=== PATIENT | male | born 1945 | race Caucasian/White ===

== ENCOUNTER 2019-12-09 06:21 | Inpatient (IN) ==
[2019-12-03 11:31] LABS: Basophils # 0.1 10*3/uL (0.0-0.2); Basophils % 0.9 % (0.0-0.8); Eosinophils # 0.4 10*3/uL (0.0-0.87); Eosinophils % 4.9 % (0.00-10.9); Hematocrit 39.8 VOL% (42.0-52.0); Hemoglobin 12.8 GM/DL (14.0-18.0); Immature Granulocytes % 0.3 %; Immature Granulocytes Absolute 0.02 #; Lymphocytes # 1.7 10*3/uL (1.4-4.0); Lymphocytes % 22.7 % (21.2-54.2); Mean Corpuscular HGB Conc 32.2 GM/DL (32-36); Mean Corpuscular Volume 89.6 FL (87-102); Mean Platelet Volume 11.3 FL (9.6-12.0); Monocytes % 9.5 % (1.7-12.7); Neutrophils % 61.7 % (38.7-73.9); Platelet Count 248 T/CUMM (130-400); Red Blood Count 4.44 MC/CUMM (3.8-5.5); Red Cell Distribution Width 15.4 % (9.3-17.3); White Blood Count 7.6 T/CUMM (4-12)
[2019-12-03 11:48] LABS: PT Patient Result 10.3 SECS (9.8-11.9); Partial Thromboplastin Time 25.4 SECS (23.9-33.8)
[2019-12-03 11:57] LABS: Bilirubin,Total 0.4 MG/DL (0.2-1.0); Calcium 9.6 MG/DL (8.5-10.1); Osmolality,Calculated 277.8 MOS/KG (273-304); Total Protein 8.5 G/DL (6.4-8.3)
[2019-12-09] MEDS ORDERED: VANCOMYCIN INJ 500 MG in SODIUM CHLORIDE 0.9% 100 ML IV ONE (06:30)
[2019-12-09] MEDS ORDERED: LACTATED RINGERS 1,000 ML IV SCH (08:00)
[2019-12-09] MEDS ORDERED: LIDOCAINE 1% 20 ML VIAL ONE (08:04)
[2019-12-09] MEDS ORDERED: HEPARIN 5,000 UNIT/1 ML VIAL ONE (08:04)
[2019-12-09] MEDS ORDERED: VANCOMYCIN 1,000 MG VIAL ONE (08:08)
[2019-12-09] MEDS ORDERED: SUGAMMADEX 200 MG/2 ML VIAL IV ONE (09:56)
[2019-12-09] MEDS ORDERED: DEXTROSE 50% 25 GM/50 ML VIAL IV PRN (10:20)
[2019-12-09] MEDS ORDERED: PROMETHAZINE 25 MG/1 ML VIAL IM PRN (10:20)
[2019-12-09] MEDS ORDERED: ONDANSETRON 4 MG/2 ML VIAL IV PRN (10:20)
[2019-12-09] MEDS ORDERED: GLUCAGON 1 MG VIAL IM PRN (10:20)
[2019-12-09] MEDS ORDERED: oxyCODONE/ACETAMINOPHEN 5-325 MG TABLET PO PRN ×2 (10:20)
[2019-12-09] MEDS ORDERED: NALOXONE 0.4 MG/ML VIAL IV PRN (10:20)
[2019-12-09] MEDS ORDERED: HYDROmorphone 2 MG/1 ML VIAL IV PRN ×2 (10:20)
[2019-12-09] MEDS ORDERED: ALBUTEROL 2.5 MG/3 ML NEB RESP TX PRN (10:22)
[2019-12-09] MEDS ORDERED: NITROPRUSSIDE 100 MG in DEXTROSE 5% 250 ML IV SCH (10:30)
[2019-12-09] MEDS ORDERED: PHENYLEPHRINE DRIP 40 MG/250 ML PREMIX IV SCH (10:30)
[2019-12-09] MEDS ORDERED: SEVOFLURANE 1 UNIT/15 MINUTE INH ONE (10:55)
[2019-12-09] MEDS ORDERED: propofoL 200 MG/20 ML VIAL IV ONE (10:55)
[2019-12-09] MEDS ORDERED: LIDOCAINE 2% 5 ML VIAL ONE (10:55)
[2019-12-09] MEDS ORDERED: fentaNYL 100 MCG/2 ML VIAL ONE (10:56)
[2019-12-09] MEDS ORDERED: ROCURONIUM 100 MG/10 ML VIAL IV ONE (10:56)
[2019-12-09] MEDS ORDERED: SODIUM CHLORIDE 0.9% 1,000 ML IV ONE (10:56)
[2019-12-09] MEDS ORDERED: ONDANSETRON 4 MG/2 ML VIAL ONE ×2 (10:56→11:40)
[2019-12-09] MEDS ORDERED: ETOMIDATE 40 MG/20 ML VIAL IV ONE (10:56)
[2019-12-09] MEDS ORDERED: MIDAZOLAM 2 MG/2 ML VIAL ONE (10:56)
[2019-12-09] MEDS ORDERED: ePHEDrine 50 MG/ML VIAL ONE (10:56)
[2019-12-09] MEDS ORDERED: MEPERIDINE 25 MG/1 ML VIAL ONE (11:40)
[2019-12-09] MEDS ORDERED: ONDANSETRON 4 MG/2 ML VIAL IV ONE (11:45)
[2019-12-09] MEDS ORDERED: MEPERIDINE 25 MG/1 ML VIAL IV ONE (11:45)
[2019-12-09] MEDS: INSULIN REGULAR 100 UNIT/ML SUBCUT SCH ×3 (15:28→20:48)
[2019-12-09] MEDS: LACTATED RINGERS 1,000 ML IV SCH (15:49)
[2019-12-09 16:15] VITALS: BP 108/36
[2019-12-09] MEDS ORDERED: PRAVASTATIN 40 MG TABLET PO SCH (21:00)
[2019-12-09] MEDS ORDERED: hydrOXYzine HCL 25 MG TABLET PO SCH (21:00)
[2019-12-09] MEDS: cilostazoL 50 MG TABLET PO SCH (21:07)
[2019-12-09] MEDS: BUDESONIDE/FORMOTEROL 160-4.5 INHALER 6 GM INH SCH (21:07)
[2019-12-09] MEDS: LOSARTAN 25 MG TABLET PO SCH (21:07)
[2019-12-09] MEDS: GLIMEPIRIDE 4 MG TABLET PO SCH (21:07)
[2019-12-10] MEDS: LACTATED RINGERS 1,000 ML IV SCH (01:08)
[2019-12-10] MEDS ORDERED: LEVOTHYROXINE 75 MCG TABLET PO SCH (06:30)
[2019-12-10] MEDS: INSULIN REGULAR 100 UNIT/ML SUBCUT SCH ×2 (07:53→11:59)
[2019-12-10] MEDS: cilostazoL 50 MG TABLET PO SCH (08:27)
[2019-12-10] MEDS: BUDESONIDE/FORMOTEROL 160-4.5 INHALER 6 GM INH SCH (08:27)
[2019-12-10] MEDS: GLIMEPIRIDE 4 MG TABLET PO SCH (08:28)
[2019-12-10] MEDS: LOSARTAN 25 MG TABLET PO SCH (08:28)
[2019-12-10] MEDS ORDERED: rOPINIRole 1 MG TABLET PO SCH (09:00)
[2019-12-10] MEDS ORDERED: MONTELUKAST 10 MG TABLET PO SCH (09:00)
[2019-12-10] MEDS ORDERED: SERTRALINE 50 MG TABLET PO SCH (09:00)
[2019-12-10] MEDS ORDERED: FUROSEMIDE 20 MG TABLET PO SCH (09:00)
[2019-12-10] MEDS ORDERED: SIMVASTATIN 20 MG TABLET PO SCH (09:00)
[2019-12-10] MEDS ORDERED: GLUCOSAMINE 500 MG TABLET PO SCH (09:00)
[2019-12-10] MEDS ORDERED: LORATADINE 10 MG TABLET PO SCH (09:00)
[2019-12-10] MEDS ORDERED: ASPIRIN EC 81 MG TABLET PO SCH ×2 (09:00)
[2019-12-10] MEDS ORDERED: CLOPIDOGREL 75 MG TABLET PO SCH ×2 (09:00)
[2019-12-10] MEDS ORDERED: metFORMIN 500 MG TABLET PO SCH (21:00)
== END 2019-12-10 14:43 | disposition home or self-care (01) | DRG 38 ==
LOC: N.SDSINP 06:21 → N.CVR 13:41
PROVIDERS: ADMIT Surgery; ATTEND Surgery

== ENCOUNTER 2020-03-29 12:10 | Inpatient (IN) ==
[2020-03-29] MEDS ORDERED: ACETAMINOPHEN 325 MG TABLET PO PRN (13:28)
[2020-03-29] MEDS ORDERED: GLUCAGON 1 MG VIAL IM PRN (13:28)
[2020-03-29] MEDS ORDERED: ONDANSETRON 4 MG/2 ML VIAL IV PRN (13:28)
[2020-03-29] MEDS ORDERED: hydrALAZINE 20 MG/1 ML VIAL IV PRN (13:28)
[2020-03-29] MEDS ORDERED: DEXTROSE 50% 25 GM/50 ML VIAL IV PRN (13:28)
[2020-03-29 13:33] LABS: Basophils # 0.1 10*3/uL (0.0-0.2); Basophils % 0.4 % (0.0-0.8); Eosinophils # 0.1 10*3/uL (0.0-0.87); Eosinophils % 0.5 % (0.00-10.9); Hematocrit 29.9 VOL% (42.0-52.0); Immature Granulocytes % 0.6 %; Immature Granulocytes Absolute 0.07 #; Lymphocytes # 0.9 10*3/uL (1.4-4.0); Lymphocytes % 8.2 % (21.2-54.2); Mean Corpuscular HGB Conc 30.1 GM/DL (32-36); Mean Corpuscular Volume 79.1 FL (87-102); Mean Platelet Volume 11.2 FL (9.6-12.0); Monocytes % 10.1 % (1.7-12.7); Neutrophils % 80.2 % (38.7-73.9); Platelet Count 198 T/CUMM (130-400); Red Blood Count 3.78 MC/CUMM (3.8-5.5); Red Cell Distribution Width 18.9 % (9.3-17.3); White Blood Count 11.3 T/CUMM (4-12)
[2020-03-29 14:08] LABS: Albumin 3.1 G/DL (3.4-5.0); Bilirubin,Total 0.8 MG/DL (0.2-1.0); Calcium 8.7 MG/DL (8.5-10.1); Ferritin 33.8 ng/ml (26-388); Osmolality,Calculated 284.7 MOS/KG (273-304); Total Protein 7.6 G/DL (6.4-8.3)
[2020-03-29 14:24] LABS: Thyroid Stimulating Hormone 6.47 uIU/ml (0.358-3.74)
[2020-03-29] MEDS ORDERED: ALBUTEROL 2.5 MG/3 ML NEB RESP TX PRN (14:40)
[2020-03-29 16:42] LABS: ABG HCO3 32.7 MMOL/L (20-26); ABG Oxygen Saturation 95.4 % (95-100); ABG PCO2 56.3 MM HG (35-48); ABG PH 7.404 (7.35-7.45); ABG PO2 75.6 MM HG (80-95); ABG TCO2 32.7 MMOL/L (23-27)
[2020-03-29] MEDS: FUROSEMIDE 40 MG/4 ML VIAL IV SCH (17:37)
[2020-03-29] MEDS: methylPREDNISolone SOD SUC 40 MG/1 ML VIAL IV SCH (17:41)
[2020-03-29] MEDS: INSULIN LISPRO 100 UNIT/ML SUBCUT SCH ×2 (18:34→21:45)
[2020-03-29] MEDS: ALBUTEROL/IPRATROPIUM 3 ML NEB RESP TX SCH (19:25)
[2020-03-29] MEDS ORDERED: ENOXAPARIN 40 MG/0.4 ML SYRINGE SUBCUT SCH (21:00)
[2020-03-29] MEDS: BUDESONIDE/FORMOTEROL 160-4.5 INHALER 6 GM INH SCH (21:45)
[2020-03-29] MEDS: APIXABAN 5 MG TABLET PO SCH (21:45)
[2020-03-29] MEDS: hydrOXYzine HCL 25 MG TABLET PO SCH (21:45)
[2020-03-29] MEDS: FAMOTIDINE 20 MG TABLET PO SCH (21:45)
[2020-03-29] MEDS: MAGNESIUM CHLORIDE 64 MG TABLET PO SCH (21:45)
[2020-03-30] MEDS: ALBUTEROL/IPRATROPIUM 3 ML NEB RESP TX SCH ×4 (02:49→19:15)
[2020-03-30] MEDS: methylPREDNISolone SOD SUC 40 MG/1 ML VIAL IV SCH ×2 (04:39→15:24)
[2020-03-30 05:58] LABS: Basophils % 0.3 % (0.0-0.8); Hematocrit 30.1 VOL% (42.0-52.0); Immature Granulocytes % 0.8 %; Immature Granulocytes Absolute 0.06 #; Lymphocytes # 0.4 10*3/uL (1.4-4.0); Lymphocytes % 5.3 % (21.2-54.2); Mean Corpuscular HGB Conc 29.9 GM/DL (32-36); Mean Corpuscular Volume 80.3 FL (87-102); Mean Platelet Volume 12.1 FL (9.6-12.0); Monocytes % 4.7 % (1.7-12.7); Neutrophils % 88.9 % (38.7-73.9); Platelet Count 202 T/CUMM (130-400); Red Blood Count 3.75 MC/CUMM (3.8-5.5); White Blood Count 7.7 T/CUMM (4-12)
[2020-03-30] MEDS: LEVOTHYROXINE 75 MCG TABLET PO SCH (06:27)
[2020-03-30 06:38] LABS: Albumin 2.8 G/DL (3.4-5.0); Bilirubin,Total 1.1 MG/DL (0.2-1.0); Calcium 8.9 MG/DL (8.5-10.1); Osmolality,Calculated 291.1 MOS/KG (273-304); Total Protein 7.4 G/DL (6.4-8.3)
[2020-03-30] MEDS: FUROSEMIDE 40 MG/4 ML VIAL IV SCH ×2 (07:41→15:25)
[2020-03-30] MEDS: INSULIN LISPRO 100 UNIT/ML SUBCUT SCH ×5 (07:57→20:36)
[2020-03-30 08:09] LABS: ABG Base Excess 8.1 MMOL/L (-2.5-2.5); ABG HCO3 33.5 MMOL/L (20-26); ABG Oxygen Saturation 93.6 % (95-100); ABG PCO2 51.7 MM HG (35-48); ABG PO2 72.6 MM HG (80-95); ABG TCO2 35.1 MMOL/L (23-27)
[2020-03-30] MEDS: LEVOFLOXACIN INJ 500 MG in PREMIX 1 EACH IV SCH (08:31)
[2020-03-30] MEDS: SIMVASTATIN 20 MG TABLET PO SCH (08:32)
[2020-03-30] MEDS: MAGNESIUM CHLORIDE 64 MG TABLET PO SCH ×2 (08:32→20:36)
[2020-03-30] MEDS: APIXABAN 5 MG TABLET PO SCH ×2 (08:32→20:36)
[2020-03-30] MEDS: MONTELUKAST 10 MG TABLET PO SCH (08:32)
[2020-03-30] MEDS: LORATADINE 10 MG TABLET PO SCH (08:32)
[2020-03-30] MEDS: POTASSIUM GLUCONATE 500 MG TABLET PO SCH (08:32)
[2020-03-30] MEDS: AMIODARONE 200 MG TABLET PO SCH (08:32)
[2020-03-30] MEDS: BUDESONIDE/FORMOTEROL 160-4.5 INHALER 6 GM INH SCH ×2 (11:51→20:37)
[2020-03-30] MEDS ORDERED: NITROGLYCERIN SL 0.4 MG TABLET SL PRN (13:45)
[2020-03-30] MEDS: ASPIRIN EC 81 MG TABLET PO SCH (15:24)
[2020-03-30] MEDS: hydrOXYzine HCL 25 MG TABLET PO SCH (20:36)
[2020-03-30] MEDS: carvediloL 3.125 MG TABLET PO SCH (20:36)
[2020-03-30] MEDS: FAMOTIDINE 20 MG TABLET PO SCH (20:36)
[2020-03-30] MEDS ORDERED: rOPINIRole 1 MG TABLET PO SCH (21:00)
[2020-03-31] MEDS: ALBUTEROL/IPRATROPIUM 3 ML NEB RESP TX SCH ×3 (02:15→12:21)
[2020-03-31] MEDS: methylPREDNISolone SOD SUC 40 MG/1 ML VIAL IV SCH (03:20)
[2020-03-31 04:46] LABS: Basophils % 0.1 % (0.0-0.8); Hematocrit 28.8 VOL% (42.0-52.0); Hemoglobin 8.6 GM/DL (14.0-18.0); Immature Granulocytes % 0.6 %; Immature Granulocytes Absolute 0.05 #; Lymphocytes # 0.6 10*3/uL (1.4-4.0); Lymphocytes % 6.9 % (21.2-54.2); Mean Corpuscular HGB Conc 29.9 GM/DL (32-36); Mean Corpuscular Volume 78.7 FL (87-102); Mean Platelet Volume 11.3 FL (9.6-12.0); Monocytes % 5.8 % (1.7-12.7); Neutrophils % 86.6 % (38.7-73.9); Platelet Count 212 T/CUMM (130-400); Red Blood Count 3.66 MC/CUMM (3.8-5.5); Red Cell Distribution Width 19.7 % (9.3-17.3)
[2020-03-31 05:26] LABS: Risk Ratio 5.12; VLDL CHOLESTEROL 33.8 MG/DL
[2020-03-31 05:27] LABS: Calcium 9.1 MG/DL (8.5-10.1); Osmolality,Calculated 295.5 MOS/KG (273-304)
[2020-03-31] MEDS: LEVOTHYROXINE 75 MCG TABLET PO SCH (05:36)
[2020-03-31] MEDS ORDERED: APIXABAN 2.5 MG TABLET PO SCH (09:00)
[2020-03-31] MEDS ORDERED: MULTIVITAMIN (CENTRUM) TABLET PO SCH (09:00)
[2020-03-31] MEDS: ASPIRIN EC 81 MG TABLET PO SCH (10:10)
[2020-03-31] MEDS: carvediloL 3.125 MG TABLET PO SCH (10:11)
[2020-03-31] MEDS: MAGNESIUM CHLORIDE 64 MG TABLET PO SCH (10:11)
[2020-03-31] MEDS: MONTELUKAST 10 MG TABLET PO SCH (10:11)
[2020-03-31] MEDS: POTASSIUM GLUCONATE 500 MG TABLET PO SCH (10:11)
[2020-03-31] MEDS: SIMVASTATIN 20 MG TABLET PO SCH (10:11)
[2020-03-31] MEDS: AMIODARONE 200 MG TABLET PO SCH (10:12)
[2020-03-31] MEDS: LORATADINE 10 MG TABLET PO SCH (10:12)
[2020-03-31] MEDS: LEVOFLOXACIN INJ 500 MG in PREMIX 1 EACH IV SCH (10:12)
[2020-03-31] MEDS: BUDESONIDE/FORMOTEROL 160-4.5 INHALER 6 GM INH SCH (10:13)
[2020-03-31] MEDS: FUROSEMIDE 40 MG/4 ML VIAL IV SCH (10:13)
[2020-03-31] MEDS ORDERED: INSULIN REGULAR 100 UNIT/ML IV ONE (11:36)
[2020-03-31] MEDS: INSULIN LISPRO 100 UNIT/ML SUBCUT SCH ×3 (11:38→11:43)
[2020-03-31 12:36] VITALS: BP 132/82
[2020-03-31] MEDS ORDERED: INSULIN LISPRO 100 UNIT/ML SUBCUT ONE (14:33)
== END 2020-03-31 15:49 | disposition home health service (06) | DRG 291 ==
LOC: EDUNIT# → EDBD → N.ED 12:10 → N.EDINP 13:26 → SUATTDRO 13:26 → N.EDINP 15:05 → N.TELEN 15:24
PROVIDERS: ADMIT Internal Medicine; ATTEND Internal Medicine

== ENCOUNTER 2021-08-21 12:44 | Inpatient (IN) ==
[2021-08-21] MEDS ORDERED: ONDANSETRON 4 MG/2 ML VIAL ONE (15:17)
[2021-08-21] MEDS ORDERED: ONDANSETRON 4 MG/2 ML VIAL IV STA (15:21)
[2021-08-21 15:41] LABS: Basophils % 0.7 % (0.0-0.8); Eosinophils # 0.1 10*3/uL (0.0-0.87); Eosinophils % 2.4 % (0.00-10.9); Hematocrit 32.4 VOL% (42.0-52.0); Hemoglobin 10.7 GM/DL (14.0-18.0); Immature Granulocytes % 0.5 %; Immature Granulocytes Absolute 0.03 #; Lymphocytes # 1.1 10*3/uL (1.4-4.0); Lymphocytes % 18.9 % (21.2-54.2); Mean Corpuscular Volume 98.2 FL (87-102); Mean Platelet Volume 11.2 FL (9.6-12.0); Monocytes # 0.9 10*3/uL (0.11-0.8); Neutrophils % 62.5 % (38.7-73.9); Platelet Count 329 T/CUMM (130-400); Red Cell Distribution Width 15.1 % (9.3-17.3); White Blood Count 5.9 T/CUMM (4-12)
[2021-08-21 15:51] LABS: PT Patient Result 10.6 SECS (10.5-12.0); Partial Thromboplastin Time 30.8 SECS (23.8-32.1)
[2021-08-21 16:01] LABS: Albumin 3.1 G/DL (3.4-5.0); Bilirubin,Total 0.5 MG/DL (0.20-1.00); Calcium 9.5 MG/DL (8.5-10.1); Osmolality,Calculated 280.4 MOS/KG (273-304); Potassium 3.1 MMOL/L (3.5-5.1)
[2021-08-21 16:06] LABS: Hyaline Casts,Urine 1 /LPF (0-3); Mucus,Urine Occasional /LPF (Occasional); Squamous Epithelial Cell,Urine Occasional /HPF (0-10)
[2021-08-21 16:07] LABS: Urine Appearance Clear (Clear); Urine Color Yellow (Yellow)
[2021-08-21 16:08] LABS: Bilirubin,Urine Negative (Negative); Blood, Urine Trace mg/dL (Negative); Glucose,Urine (UA) Negative (Negative); Ketones,Urine Negative (Negative); Nitrite,Urine Negative (Negative); Protein,Urine Negative (Negative); Urine Urobilinogen 0.2 eU/dL (<2.0); Urine pH 5.5 (4.5-8.0)
[2021-08-21] MEDS ORDERED: ONDANSETRON 4 MG/2 ML VIAL IV PRN (16:40)
[2021-08-21] MEDS ORDERED: MORPHINE 2 MG/1 ML SYRINGE IV STA (16:41)
[2021-08-21] MEDS ORDERED: metOLazone 5 MG TABLET PO PRN (16:46)
[2021-08-21] MEDS ORDERED: GLUCAGON 1 MG VIAL IM PRN (16:49)
[2021-08-21] MEDS ORDERED: DEXTROSE 10% 250 ML BAG IV PRN (17:09)
[2021-08-21] MEDS: SODIUM CHLORIDE 0.9% 1,000 ML IV SCH (17:56)
[2021-08-21] MEDS: ENOXAPARIN 30 MG/0.3 ML SYRINGE SUBCUT SCH (17:57)
[2021-08-21] MEDS: ALBUTEROL/IPRATROPIUM 3 ML NEB RESP TX SCH (19:20)
[2021-08-21] MEDS: gemfibroziL 600 MG TABLET PO SCH (21:39)
[2021-08-21] MEDS: hydrOXYzine HCL 25 MG TABLET PO SCH (21:39)
[2021-08-21] MEDS: carvediloL 3.125 MG TABLET PO SCH (21:40)
[2021-08-21] MEDS: MONTELUKAST 10 MG TABLET PO SCH (21:40)
[2021-08-21] MEDS: rOPINIRole 1 MG TABLET PO SCH (21:40)
[2021-08-21] MEDS: SERTRALINE 50 MG TABLET PO SCH (21:40)
[2021-08-21] MEDS: INSULIN REGULAR 100 UNIT/ML SUBCUT SCH (21:50)
[2021-08-22] MEDS: SODIUM CHLORIDE 0.9% 1,000 ML IV SCH ×3 (02:59→18:31)
[2021-08-22] MEDS: ALBUTEROL/IPRATROPIUM 3 ML NEB RESP TX SCH ×4 (03:40→18:55)
[2021-08-22] MEDS: LEVOTHYROXINE 88 MCG TABLET PO SCH (05:56)
[2021-08-22 07:19] LABS: Basophils % 0.9 % (0.0-0.8); Eosinophils # 0.1 10*3/uL (0.0-0.87); Eosinophils % 2.6 % (0.00-10.9); Hemoglobin 10.1 GM/DL (14.0-18.0); Immature Granulocytes % 0.4 %; Immature Granulocytes Absolute 0.02 #; Lymphocytes # 0.9 10*3/uL (1.4-4.0); Lymphocytes % 18.8 % (21.2-54.2); Mean Corpuscular HGB Conc 33.7 GM/DL (32-36); Mean Corpuscular Volume 97.4 FL (87-102); Mean Platelet Volume 11.4 FL (9.6-12.0); Monocytes # 0.7 10*3/uL (0.11-0.8); Monocytes % 15.1 % (1.7-12.7); Neutrophils % 62.2 % (38.7-73.9); Platelet Count 305 T/CUMM (130-400); Red Blood Count 3.08 MC/CUMM (3.8-5.5); Red Cell Distribution Width 14.9 % (9.3-17.3); White Blood Count 4.6 T/CUMM (4-12)
[2021-08-22 07:52] LABS: Albumin 2.9 G/DL (3.4-5.0); Bilirubin,Total 0.4 MG/DL (0.20-1.00); Osmolality,Calculated 288.5 MOS/KG (273-304); Total Protein 7.2 G/DL (6.4-8.2)
[2021-08-22] MEDS: FUROSEMIDE 40 MG TABLET PO SCH ×2 (09:22→15:40)
[2021-08-22] MEDS: carvediloL 3.125 MG TABLET PO SCH ×2 (09:22→18:32)
[2021-08-22] MEDS: ASPIRIN EC 81 MG TABLET PO SCH (09:22)
[2021-08-22] MEDS: NON-FORMULARY MEDICATION (Fluticasone-Umeclidin-Vilanter [Trelegy Ellipta] 100-62.5-25 mcg INH SCH (09:23)
[2021-08-22] MEDS: AMIODARONE 200 MG TABLET PO SCH (09:23)
[2021-08-22] MEDS: MAGNESIUM CHLORIDE 64 MG TABLET PO SCH (09:23)
[2021-08-22] MEDS: PANTOPRAZOLE 40 MG TABLET PO SCH (09:23)
[2021-08-22] MEDS: EZETIMIBE 10 MG TABLET PO SCH (09:23)
[2021-08-22] MEDS: TAMSULOSIN 0.4 MG CAPSULE PO SCH (09:23)
[2021-08-22] MEDS: LORATADINE 10 MG TABLET PO SCH (09:23)
[2021-08-22] MEDS: gemfibroziL 600 MG TABLET PO SCH ×2 (09:23→21:17)
[2021-08-22] MEDS: POTASSIUM CHLORIDE 20 MEQ TABLET PO PRN ×3 (09:24→15:40)
[2021-08-22] MEDS: INSULIN REGULAR 100 UNIT/ML SUBCUT SCH ×4 (11:11→21:17)
[2021-08-22] MEDS ORDERED: POTASSIUM CHLORIDE 20 MEQ TABLET PO ONE (13:00)
[2021-08-22] MEDS: MENTHOL/ZINC OXIDE OINT 71 GM JAR TOP SCH ×2 (15:40→21:17)
[2021-08-22] MEDS: rOPINIRole 1 MG TABLET PO SCH (21:17)
[2021-08-22] MEDS: SERTRALINE 50 MG TABLET PO SCH (21:17)
[2021-08-22] MEDS: MONTELUKAST 10 MG TABLET PO SCH (21:17)
[2021-08-22] MEDS: ENOXAPARIN 30 MG/0.3 ML SYRINGE SUBCUT SCH (21:17)
[2021-08-22] MEDS: hydrOXYzine HCL 25 MG TABLET PO SCH (21:17)
[2021-08-23] MEDS: ALBUTEROL/IPRATROPIUM 3 ML NEB RESP TX SCH ×4 (01:14→19:15)
[2021-08-23] MEDS: SODIUM CHLORIDE 0.9% 1,000 ML IV SCH ×2 (03:06→10:07)
[2021-08-23 05:29] LABS: Basophils % 0.7 % (0.0-0.8); Eosinophils # 0.1 10*3/uL (0.0-0.87); Eosinophils % 2.4 % (0.00-10.9); Hematocrit 31.9 VOL% (42.0-52.0); Hemoglobin 10.2 GM/DL (14.0-18.0); Immature Granulocytes % 0.6 %; Immature Granulocytes Absolute 0.03 #; Lymphocytes # 0.9 10*3/uL (1.4-4.0); Lymphocytes % 16.9 % (21.2-54.2); Mean Corpuscular Volume 99.4 FL (87-102); Mean Platelet Volume 11.2 FL (9.6-12.0); Monocytes # 0.9 10*3/uL (0.11-0.8); Monocytes % 17.2 % (1.7-12.7); Neutrophils % 62.2 % (38.7-73.9); Platelet Count 299 T/CUMM (130-400); Red Blood Count 3.21 MC/CUMM (3.8-5.5); Red Cell Distribution Width 14.7 % (9.3-17.3); White Blood Count 5.3 T/CUMM (4-12)
[2021-08-23 05:45] LABS: Osmolality,Calculated 295.8 MOS/KG (273-304); Potassium 2.9 MMOL/L (3.5-5.1)
[2021-08-23 05:49] LABS: Risk Ratio 7.47; VLDL Cholesterol 72.6 MG/DL
[2021-08-23] MEDS: LEVOTHYROXINE 88 MCG TABLET PO SCH (05:49)
[2021-08-23 05:53] LABS: Band Neutrophils 1 % (0-10); Eosinophils 4 % (0-10); Lymphocytes 25 % (20-55); Total Cells Counted 100
[2021-08-23 05:54] LABS: Atypical Lymphocytes Few
[2021-08-23 05:55] LABS: Macrocytosis Slight
[2021-08-23] MEDS ORDERED: MIDAZOLAM 2 MG/2 ML VIAL ONE (06:44)
[2021-08-23] MEDS ORDERED: MEPERIDINE 50 MG/1 ML VIAL IM ONE (07:30)
[2021-08-23] MEDS ORDERED: PROMETHAZINE 25 MG/1 ML VIAL IM ONE (07:30)
[2021-08-23] MEDS ORDERED: MIDAZOLAM 2 MG/2 ML VIAL IV ONE (08:00)
[2021-08-23] MEDS ORDERED: LIDOCAINE 2% 20 ML VIAL RESP TX ONE (08:00)
[2021-08-23] MEDS ORDERED: LIDOCAINE 1% 20 ML VIAL MISC INJ ONE (08:00)
[2021-08-23] MEDS ORDERED: LIDOCAINE 2% VISCOUS 100 ML BOTTLE SWISH/SPIT ONE (08:00)
[2021-08-23] MEDS: MAGNESIUM CHLORIDE 64 MG TABLET PO SCH (10:04)
[2021-08-23] MEDS: EZETIMIBE 10 MG TABLET PO SCH (10:04)
[2021-08-23] MEDS: PANTOPRAZOLE 40 MG TABLET PO SCH (10:05)
[2021-08-23] MEDS: FUROSEMIDE 40 MG TABLET PO SCH ×2 (10:05→15:57)
[2021-08-23] MEDS: carvediloL 3.125 MG TABLET PO SCH ×2 (10:05→17:01)
[2021-08-23] MEDS: TAMSULOSIN 0.4 MG CAPSULE PO SCH (10:05)
[2021-08-23] MEDS: ASPIRIN EC 81 MG TABLET PO SCH (10:05)
[2021-08-23] MEDS: AMIODARONE 200 MG TABLET PO SCH (10:05)
[2021-08-23] MEDS: LORATADINE 10 MG TABLET PO SCH (10:06)
[2021-08-23] MEDS: MENTHOL/ZINC OXIDE OINT 71 GM JAR TOP SCH ×2 (10:06→20:47)
[2021-08-23] MEDS: gemfibroziL 600 MG TABLET PO SCH ×2 (10:07→20:47)
[2021-08-23] MEDS: INSULIN REGULAR 100 UNIT/ML SUBCUT SCH ×3 (12:15→20:46)
[2021-08-23] MEDS ORDERED: POTASSIUM CHLORIDE 20 MEQ TABLET PO ONE (13:00)
[2021-08-23] MEDS: hydrOXYzine HCL 25 MG TABLET PO SCH (20:46)
[2021-08-23] MEDS: rOPINIRole 1 MG TABLET PO SCH (20:46)
[2021-08-23] MEDS: ENOXAPARIN 30 MG/0.3 ML SYRINGE SUBCUT SCH (20:47)
[2021-08-23] MEDS: SERTRALINE 50 MG TABLET PO SCH (20:47)
[2021-08-23] MEDS: MONTELUKAST 10 MG TABLET PO SCH (20:47)
[2021-08-23] MEDS: GABAPENTIN 100 MG CAPSULE PO SCH (20:47)
[2021-08-24] MEDS: ALBUTEROL/IPRATROPIUM 3 ML NEB RESP TX SCH ×4 (00:10→19:30)
[2021-08-24 05:15] LABS: Basophils % 0.5 % (0.0-0.8); Eosinophils # 0.1 10*3/uL (0.0-0.87); Eosinophils % 1.7 % (0.00-10.9); Hematocrit 33.5 VOL% (42.0-52.0); Hemoglobin 10.6 GM/DL (14.0-18.0); Immature Granulocytes % 0.4 %; Immature Granulocytes Absolute 0.03 #; Lymphocytes % 12.5 % (21.2-54.2); Mean Corpuscular HGB Conc 31.6 GM/DL (32-36); Mean Corpuscular Volume 101.8 FL (87-102); Mean Platelet Volume 11.4 FL (9.6-12.0); Monocytes # 1.1 10*3/uL (0.11-0.8); Monocytes % 13.1 % (1.7-12.7); Neutrophils % 71.8 % (38.7-73.9); Platelet Count 323 T/CUMM (130-400); Red Blood Count 3.29 MC/CUMM (3.8-5.5); Red Cell Distribution Width 15.2 % (9.3-17.3); White Blood Count 8.2 T/CUMM (4-12)
[2021-08-24] MEDS: LEVOTHYROXINE 88 MCG TABLET PO SCH ×2 (05:15→06:27)
[2021-08-24 05:33] LABS: Calcium 9.6 MG/DL (8.5-10.1); Osmolality,Calculated 297.4 MOS/KG (273-304)
[2021-08-24] MEDS: GABAPENTIN 100 MG CAPSULE PO SCH ×2 (08:42→20:47)
[2021-08-24] MEDS: LORATADINE 10 MG TABLET PO SCH (08:42)
[2021-08-24] MEDS: EZETIMIBE 10 MG TABLET PO SCH (08:42)
[2021-08-24] MEDS: ASPIRIN EC 81 MG TABLET PO SCH (08:42)
[2021-08-24] MEDS: gemfibroziL 600 MG TABLET PO SCH ×2 (08:42→20:47)
[2021-08-24] MEDS: MAGNESIUM CHLORIDE 64 MG TABLET PO SCH (08:42)
[2021-08-24] MEDS: INSULIN REGULAR 100 UNIT/ML SUBCUT SCH ×4 (08:42→20:50)
[2021-08-24] MEDS: PANTOPRAZOLE 40 MG TABLET PO SCH (08:42)
[2021-08-24] MEDS: carvediloL 3.125 MG TABLET PO SCH ×2 (08:43→17:06)
[2021-08-24] MEDS: TAMSULOSIN 0.4 MG CAPSULE PO SCH (08:43)
[2021-08-24] MEDS: POTASSIUM CHLORIDE 20 MEQ TABLET PO PRN ×4 (08:43→15:03)
[2021-08-24] MEDS: FUROSEMIDE 40 MG TABLET PO SCH ×2 (08:43→17:07)
[2021-08-24] MEDS: AMIODARONE 200 MG TABLET PO SCH (08:43)
[2021-08-24] MEDS: NON-FORMULARY MEDICATION (Fluticasone-Umeclidin-Vilanter [Trelegy Ellipta] 100-62.5-25 mcg INH SCH (10:06)
[2021-08-24] MEDS: MENTHOL/ZINC OXIDE OINT 71 GM JAR TOP SCH ×2 (10:06→20:58)
[2021-08-24] MEDS ORDERED: AZTREONAM 1,000 MG VIAL IM SCH (13:00)
[2021-08-24] MEDS: ACETYLCYSTEINE 20% 800 MG/4 ML VIAL RESP TX SCH (13:18)
[2021-08-24] MEDS ORDERED: LEVOFLOXACIN INJ 750 MG/150 ML PREMIX IV SCH (15:00)
[2021-08-24] MEDS ORDERED: POTASSIUM CHLORIDE 20 MEQ TABLET PO ONE (15:00)
[2021-08-24] MEDS: AZTREONAM 1,000 MG in SODIUM CHLORIDE 0.9% 100 ML IV SCH ×2 (15:05→21:00)
[2021-08-24] MEDS: BUDESONIDE 0.5 MG/2 ML NEB RESP TX SCH (19:30)
[2021-08-24] MEDS: SERTRALINE 50 MG TABLET PO SCH (20:46)
[2021-08-24] MEDS: rOPINIRole 1 MG TABLET PO SCH (20:46)
[2021-08-24] MEDS: MONTELUKAST 10 MG TABLET PO SCH (20:47)
[2021-08-24] MEDS: ENOXAPARIN 30 MG/0.3 ML SYRINGE SUBCUT SCH (20:48)
[2021-08-24] MEDS: hydrOXYzine HCL 25 MG TABLET PO SCH (20:52)
[2021-08-25] MEDS: ACETYLCYSTEINE 20% 800 MG/4 ML VIAL RESP TX SCH ×3 (01:30→13:50)
[2021-08-25] MEDS: ALBUTEROL/IPRATROPIUM 3 ML NEB RESP TX SCH ×4 (01:30→19:20)
[2021-08-25] MEDS: AZTREONAM 1,000 MG in SODIUM CHLORIDE 0.9% 100 ML IV SCH ×4 (02:59→20:53)
[2021-08-25 05:39] LABS: Basophils % 0.5 % (0.0-0.8); Eosinophils # 0.1 10*3/uL (0.0-0.87); Eosinophils % 1.3 % (0.00-10.9); Hemoglobin 9.1 GM/DL (14.0-18.0); Immature Granulocytes % 0.8 %; Immature Granulocytes Absolute 0.06 #; Lymphocytes # 1.2 10*3/uL (1.4-4.0); Lymphocytes % 16.1 % (21.2-54.2); Mean Corpuscular HGB Conc 31.4 GM/DL (32-36); Mean Corpuscular Volume 102.1 FL (87-102); Mean Platelet Volume 11.5 FL (9.6-12.0); Monocytes # 1.1 10*3/uL (0.11-0.8); Monocytes % 14.2 % (1.7-12.7); Neutrophils % 67.1 % (38.7-73.9); Platelet Count 296 T/CUMM (130-400); Red Blood Count 2.84 MC/CUMM (3.8-5.5); Red Cell Distribution Width 15.3 % (9.3-17.3); White Blood Count 7.6 T/CUMM (4-12)
[2021-08-25] MEDS: LEVOTHYROXINE 88 MCG TABLET PO SCH (05:57)
[2021-08-25 06:17] LABS: Calcium 9.3 MG/DL (8.5-10.1); Potassium 3.5 MMOL/L (3.5-5.1)
[2021-08-25] MEDS: BUDESONIDE 0.5 MG/2 ML NEB RESP TX SCH ×2 (07:20→19:20)
[2021-08-25] MEDS: PANTOPRAZOLE 40 MG TABLET PO SCH (08:48)
[2021-08-25] MEDS: carvediloL 3.125 MG TABLET PO SCH ×2 (08:48→18:02)
[2021-08-25] MEDS: AMIODARONE 200 MG TABLET PO SCH (08:48)
[2021-08-25] MEDS: INSULIN REGULAR 100 UNIT/ML SUBCUT SCH ×4 (08:48→21:18)
[2021-08-25] MEDS: MAGNESIUM CHLORIDE 64 MG TABLET PO SCH (08:49)
[2021-08-25] MEDS: ASPIRIN EC 81 MG TABLET PO SCH (08:49)
[2021-08-25] MEDS: POTASSIUM CHLORIDE 20 MEQ TABLET PO PRN ×2 (08:49→10:19)
[2021-08-25] MEDS: gemfibroziL 600 MG TABLET PO SCH ×2 (08:49→20:47)
[2021-08-25] MEDS: TAMSULOSIN 0.4 MG CAPSULE PO SCH (08:49)
[2021-08-25] MEDS: EZETIMIBE 10 MG TABLET PO SCH (08:49)
[2021-08-25] MEDS: FUROSEMIDE 40 MG TABLET PO SCH ×2 (08:50→15:46)
[2021-08-25] MEDS: GABAPENTIN 100 MG CAPSULE PO SCH (08:50)
[2021-08-25] MEDS: MENTHOL/ZINC OXIDE OINT 71 GM JAR TOP SCH ×2 (08:50→20:48)
[2021-08-25] MEDS: LORATADINE 10 MG TABLET PO SCH (08:50)
[2021-08-25] MEDS: NON-FORMULARY MEDICATION (Fluticasone-Umeclidin-Vilanter [Trelegy Ellipta] 100-62.5-25 mcg INH SCH (08:51)
[2021-08-25] MEDS: INSULIN GLARGINE 100 UNIT/ML SUBCUT SCH (15:46)
[2021-08-25] MEDS: SERTRALINE 50 MG TABLET PO SCH (20:47)
[2021-08-25] MEDS: rOPINIRole 1 MG TABLET PO SCH (20:47)
[2021-08-25] MEDS: ENOXAPARIN 30 MG/0.3 ML SYRINGE SUBCUT SCH (20:47)
[2021-08-25] MEDS: MONTELUKAST 10 MG TABLET PO SCH (20:47)
[2021-08-25] MEDS: hydrOXYzine HCL 25 MG TABLET PO SCH (20:51)
[2021-08-26] MEDS: ACETYLCYSTEINE 20% 800 MG/4 ML VIAL RESP TX SCH ×4 (01:00→23:12)
[2021-08-26] MEDS: ALBUTEROL/IPRATROPIUM 3 ML NEB RESP TX SCH ×5 (01:00→23:12)
[2021-08-26] MEDS: AZTREONAM 1,000 MG in SODIUM CHLORIDE 0.9% 100 ML IV SCH ×4 (03:00→21:15)
[2021-08-26 05:44] LABS: Basophils % 0.5 % (0.0-0.8); Eosinophils # 0.1 10*3/uL (0.0-0.87); Hematocrit 28.5 VOL% (42.0-52.0); Immature Granulocytes % 0.7 %; Immature Granulocytes Absolute 0.06 #; Lymphocytes # 1.2 10*3/uL (1.4-4.0); Lymphocytes % 14.4 % (21.2-54.2); Mean Corpuscular HGB Conc 31.6 GM/DL (32-36); Mean Corpuscular Volume 101.4 FL (87-102); Mean Platelet Volume 11.4 FL (9.6-12.0); Monocytes # 1.2 10*3/uL (0.11-0.8); Monocytes % 15.1 % (1.7-12.7); Neutrophils % 68.3 % (38.7-73.9); Platelet Count 314 T/CUMM (130-400); Red Blood Count 2.81 MC/CUMM (3.8-5.5); Red Cell Distribution Width 15.3 % (9.3-17.3)
[2021-08-26] MEDS: LEVOTHYROXINE 88 MCG TABLET PO SCH (06:03)
[2021-08-26 06:09] LABS: Calcium 9.4 MG/DL (8.5-10.1); Osmolality,Calculated 292.5 MOS/KG (273-304); Potassium 3.1 MMOL/L (3.5-5.1)
[2021-08-26] MEDS: BUDESONIDE 0.5 MG/2 ML NEB RESP TX SCH ×2 (07:10→19:43)
[2021-08-26] MEDS: INSULIN REGULAR 100 UNIT/ML SUBCUT SCH ×4 (10:29→21:45)
[2021-08-26] MEDS: INSULIN GLARGINE 100 UNIT/ML SUBCUT SCH (10:29)
[2021-08-26] MEDS: ASPIRIN EC 81 MG TABLET PO SCH (10:30)
[2021-08-26] MEDS: carvediloL 3.125 MG TABLET PO SCH ×2 (10:30→16:28)
[2021-08-26] MEDS: AMIODARONE 200 MG TABLET PO SCH (10:30)
[2021-08-26] MEDS: FUROSEMIDE 40 MG TABLET PO SCH ×2 (10:30→15:11)
[2021-08-26] MEDS: MENTHOL/ZINC OXIDE OINT 71 GM JAR TOP SCH ×2 (10:31→21:45)
[2021-08-26] MEDS: LORATADINE 10 MG TABLET PO SCH (10:32)
[2021-08-26] MEDS: MAGNESIUM CHLORIDE 64 MG TABLET PO SCH (10:32)
[2021-08-26] MEDS: TAMSULOSIN 0.4 MG CAPSULE PO SCH (10:33)
[2021-08-26] MEDS: gemfibroziL 600 MG TABLET PO SCH ×2 (10:33→21:45)
[2021-08-26] MEDS: PANTOPRAZOLE 40 MG TABLET PO SCH (10:33)
[2021-08-26] MEDS: EZETIMIBE 10 MG TABLET PO SCH (10:34)
[2021-08-26] MEDS ORDERED: POTASSIUM CHLORIDE 20 MEQ TABLET PO ONE (10:48)
[2021-08-26] MEDS ORDERED: LACTULOSE 20 GM/30 ML UDCUP PO ONE (10:57)
[2021-08-26] MEDS ORDERED: traMADol 50 MG TABLET PO PRN (11:15)
[2021-08-26 11:39] LABS: Rheumatoid Factor < 15 IU/ML (<15); Uric Acid 10.4 MG/DL (3.5-7.2)
[2021-08-26] MEDS: NON-FORMULARY MEDICATION (Fluticasone-Umeclidin-Vilanter [Trelegy Ellipta] 100-62.5-25 mcg INH SCH ×2 (12:02→20:56)
[2021-08-26] MEDS: POTASSIUM PHOS/SOD PHOS POWDER 250 MG PACK PO SCH ×2 (15:11→21:45)
[2021-08-26] MEDS: hydrOXYzine HCL 25 MG TABLET PO SCH (21:15)
[2021-08-26] MEDS: ENOXAPARIN 30 MG/0.3 ML SYRINGE SUBCUT SCH (21:45)
[2021-08-26] MEDS: rOPINIRole 1 MG TABLET PO SCH (21:45)
[2021-08-26] MEDS: SERTRALINE 50 MG TABLET PO SCH (21:45)
[2021-08-26] MEDS: LACTULOSE 20 GM/30 ML UDCUP PO SCH (21:45)
[2021-08-26] MEDS: MONTELUKAST 10 MG TABLET PO SCH (21:45)
[2021-08-26] MEDS: SODIUM CHLORIDE 0.9% 1,000 ML IV SCH (23:35)
[2021-08-27] MEDS: AZTREONAM 1,000 MG in SODIUM CHLORIDE 0.9% 100 ML IV SCH ×4 (02:30→20:20)
[2021-08-27] MEDS: LEVOTHYROXINE 88 MCG TABLET PO SCH (05:35)
[2021-08-27 05:49] LABS: Basophils % 0.5 % (0.0-0.8); Eosinophils % 0.5 % (0.00-10.9); Hematocrit 28.4 VOL% (42.0-52.0); Hemoglobin 8.9 GM/DL (14.0-18.0); Immature Granulocytes % 0.6 %; Immature Granulocytes Absolute 0.05 #; Lymphocytes % 10.9 % (21.2-54.2); Mean Corpuscular HGB Conc 31.3 GM/DL (32-36); Mean Corpuscular Volume 101.4 FL (87-102); Mean Platelet Volume 10.9 FL (9.6-12.0); Monocytes # 1.2 10*3/uL (0.11-0.8); Monocytes % 13.1 % (1.7-12.7); Neutrophils % 74.4 % (38.7-73.9); Platelet Count 301 T/CUMM (130-400); Red Cell Distribution Width 15.1 % (9.3-17.3); White Blood Count 8.8 T/CUMM (4-12)
[2021-08-27 06:10] LABS: Calcium 9.9 MG/DL (8.5-10.1); Osmolality,Calculated 290.7 MOS/KG (273-304); Potassium 3.2 MMOL/L (3.5-5.1)
[2021-08-27] MEDS: ACETYLCYSTEINE 20% 800 MG/4 ML VIAL RESP TX SCH ×2 (07:14→13:40)
[2021-08-27] MEDS: BUDESONIDE 0.5 MG/2 ML NEB RESP TX SCH ×2 (07:14→19:28)
[2021-08-27] MEDS: ALBUTEROL/IPRATROPIUM 3 ML NEB RESP TX SCH ×3 (07:14→19:28)
[2021-08-27] MEDS ORDERED: POTASSIUM CHLORIDE 20 MEQ TABLET PO ONE (08:52)
[2021-08-27] MEDS: INSULIN REGULAR 100 UNIT/ML SUBCUT SCH ×4 (09:21→21:30)
[2021-08-27] MEDS: INSULIN GLARGINE 100 UNIT/ML SUBCUT SCH (09:21)
[2021-08-27] MEDS: carvediloL 3.125 MG TABLET PO SCH ×2 (09:22→17:23)
[2021-08-27] MEDS: ASPIRIN EC 81 MG TABLET PO SCH (09:22)
[2021-08-27] MEDS: TAMSULOSIN 0.4 MG CAPSULE PO SCH (09:22)
[2021-08-27] MEDS: PANTOPRAZOLE 40 MG TABLET PO SCH (09:22)
[2021-08-27] MEDS: gemfibroziL 600 MG TABLET PO SCH ×2 (09:22→21:30)
[2021-08-27] MEDS: EZETIMIBE 10 MG TABLET PO SCH (09:22)
[2021-08-27] MEDS: AMIODARONE 200 MG TABLET PO SCH (09:22)
[2021-08-27] MEDS: MAGNESIUM CHLORIDE 64 MG TABLET PO SCH (09:22)
[2021-08-27] MEDS: POTASSIUM PHOS/SOD PHOS POWDER 250 MG PACK PO SCH ×2 (09:23→21:30)
[2021-08-27] MEDS: LORATADINE 10 MG TABLET PO SCH (09:23)
[2021-08-27] MEDS: FUROSEMIDE 40 MG TABLET PO SCH ×2 (09:23→17:24)
[2021-08-27] MEDS: LACTULOSE 20 GM/30 ML UDCUP PO SCH ×2 (09:23→21:30)
[2021-08-27] MEDS: MENTHOL/ZINC OXIDE OINT 71 GM JAR TOP SCH ×2 (09:28→21:30)
[2021-08-27] MEDS: NON-FORMULARY MEDICATION (Fluticasone-Umeclidin-Vilanter [Trelegy Ellipta] 100-62.5-25 mcg INH SCH (10:49)
[2021-08-27] MEDS ORDERED: predniSONE 10 MG TABLET PO ONE (12:38)
[2021-08-27 14:18] LABS: % Iron Saturation 9.3 % (18-50)
[2021-08-27 14:26] LABS: Folate 15.66 NG/ML (5.38-24.0)
[2021-08-27] MEDS: SERTRALINE 50 MG TABLET PO SCH (21:30)
[2021-08-27] MEDS: ENOXAPARIN 30 MG/0.3 ML SYRINGE SUBCUT SCH (21:30)
[2021-08-27] MEDS: MONTELUKAST 10 MG TABLET PO SCH (21:30)
[2021-08-27] MEDS: hydrOXYzine HCL 25 MG TABLET PO SCH (22:18)
[2021-08-27] MEDS: rOPINIRole 1 MG TABLET PO SCH (22:18)
[2021-08-28] MEDS: ACETYLCYSTEINE 20% 800 MG/4 ML VIAL RESP TX SCH ×3 (01:13→14:30)
[2021-08-28] MEDS: ALBUTEROL/IPRATROPIUM 3 ML NEB RESP TX SCH ×4 (01:13→19:12)
[2021-08-28] MEDS: AZTREONAM 1,000 MG in SODIUM CHLORIDE 0.9% 100 ML IV SCH ×4 (02:30→21:59)
[2021-08-28 05:39] LABS: Basophils % 0.3 % (0.0-0.8); Hematocrit 27.9 VOL% (42.0-52.0); Hemoglobin 8.7 GM/DL (14.0-18.0); Immature Granulocytes % 0.8 %; Immature Granulocytes Absolute 0.06 #; Lymphocytes # 0.8 10*3/uL (1.4-4.0); Lymphocytes % 10.3 % (21.2-54.2); Mean Corpuscular HGB Conc 31.2 GM/DL (32-36); Mean Platelet Volume 11.3 FL (9.6-12.0); Monocytes # 0.8 10*3/uL (0.11-0.8); Monocytes % 10.1 % (1.7-12.7); Neutrophils % 78.5 % (38.7-73.9); Platelet Count 302 T/CUMM (130-400); Red Blood Count 2.79 MC/CUMM (3.8-5.5); Red Cell Distribution Width 14.8 % (9.3-17.3); White Blood Count 7.4 T/CUMM (4-12)
[2021-08-28 05:53] LABS: Calcium 10.1 MG/DL (8.5-10.1); Osmolality,Calculated 303.5 MOS/KG (273-304); Potassium 3.4 MMOL/L (3.5-5.1)
[2021-08-28] MEDS: BUDESONIDE 0.5 MG/2 ML NEB RESP TX SCH ×2 (07:34→19:12)
[2021-08-28] MEDS ORDERED: TUBERCULIN SKIN TEST 0.1 ML SYRINGE INTRADERM ONE (07:40)
[2021-08-28] MEDS ORDERED: POTASSIUM CHLORIDE 20 MEQ TABLET PO ONE (08:17)
[2021-08-28] MEDS: MENTHOL/ZINC OXIDE OINT 71 GM JAR TOP SCH ×2 (08:28→20:45)
[2021-08-28] MEDS: INSULIN GLARGINE 100 UNIT/ML SUBCUT SCH (08:28)
[2021-08-28] MEDS: predniSONE 10 MG TABLET PO SCH (08:29)
[2021-08-28] MEDS: FUROSEMIDE 40 MG TABLET PO SCH ×2 (08:29→16:46)
[2021-08-28] MEDS: LACTULOSE 20 GM/30 ML UDCUP PO SCH ×2 (08:29→20:45)
[2021-08-28] MEDS: INSULIN REGULAR 100 UNIT/ML SUBCUT SCH ×4 (08:29→21:15)
[2021-08-28] MEDS: EZETIMIBE 10 MG TABLET PO SCH (08:29)
[2021-08-28] MEDS: AMIODARONE 200 MG TABLET PO SCH (08:29)
[2021-08-28] MEDS: MAGNESIUM CHLORIDE 64 MG TABLET PO SCH (08:30)
[2021-08-28] MEDS: CHOLECALCIFEROL 5,000 UNIT TABLET PO SCH (08:30)
[2021-08-28] MEDS: ASPIRIN EC 81 MG TABLET PO SCH (08:30)
[2021-08-28] MEDS: LORATADINE 10 MG TABLET PO SCH (08:30)
[2021-08-28] MEDS: gemfibroziL 600 MG TABLET PO SCH ×2 (08:30→20:45)
[2021-08-28] MEDS: PANTOPRAZOLE 40 MG TABLET PO SCH (08:30)
[2021-08-28] MEDS: TAMSULOSIN 0.4 MG CAPSULE PO SCH (08:30)
[2021-08-28] MEDS: carvediloL 3.125 MG TABLET PO SCH ×2 (08:30→16:46)
[2021-08-28] MEDS: LEVOTHYROXINE 88 MCG TABLET PO SCH (08:30)
[2021-08-28] MEDS: NON-FORMULARY MEDICATION (Fluticasone-Umeclidin-Vilanter [Trelegy Ellipta] 100-62.5-25 mcg INH SCH (10:40)
[2021-08-28] MEDS: ENOXAPARIN 30 MG/0.3 ML SYRINGE SUBCUT SCH (20:45)
[2021-08-28] MEDS: MONTELUKAST 10 MG TABLET PO SCH (20:45)
[2021-08-28] MEDS: SERTRALINE 50 MG TABLET PO SCH (20:45)
[2021-08-28] MEDS: rOPINIRole 1 MG TABLET PO SCH (21:59)
[2021-08-28] MEDS: hydrOXYzine HCL 25 MG TABLET PO SCH (21:59)
[2021-08-29] MEDS: ALBUTEROL/IPRATROPIUM 3 ML NEB RESP TX SCH ×4 (01:08→19:42)
[2021-08-29] MEDS: ACETYLCYSTEINE 20% 800 MG/4 ML VIAL RESP TX SCH ×3 (01:08→17:05)
[2021-08-29] MEDS: AZTREONAM 1,000 MG in SODIUM CHLORIDE 0.9% 100 ML IV SCH ×4 (03:00→22:14)
[2021-08-29] MEDS: LEVOTHYROXINE 88 MCG TABLET PO SCH (06:05)
[2021-08-29 06:35] LABS: Basophils % 0.1 % (0.0-0.8); Hematocrit 27.2 VOL% (42.0-52.0); Hemoglobin 8.7 GM/DL (14.0-18.0); Immature Granulocytes % 0.8 %; Immature Granulocytes Absolute 0.06 #; Lymphocytes # 0.8 10*3/uL (1.4-4.0); Lymphocytes % 11.4 % (21.2-54.2); Mean Corpuscular Volume 100.4 FL (87-102); Mean Platelet Volume 11.2 FL (9.6-12.0); Monocytes # 0.7 10*3/uL (0.11-0.8); Monocytes % 9.9 % (1.7-12.7); Neutrophils % 77.8 % (38.7-73.9); Platelet Count 298 T/CUMM (130-400); Red Blood Count 2.71 MC/CUMM (3.8-5.5); Red Cell Distribution Width 14.9 % (9.3-17.3); White Blood Count 7.3 T/CUMM (4-12)
[2021-08-29 07:01] LABS: Calcium 9.5 MG/DL (8.5-10.1)
[2021-08-29 07:02] LABS: Albumin 2.2 G/DL (3.4-5.0); Bilirubin,Total 0.5 MG/DL (0.20-1.00); Osmolality,Calculated 303.4 MOS/KG (273-304); Total Protein 7.5 G/DL (6.4-8.2)
[2021-08-29] MEDS: INSULIN REGULAR 100 UNIT/ML SUBCUT SCH ×4 (07:16→21:01)
[2021-08-29] MEDS: BUDESONIDE 0.5 MG/2 ML NEB RESP TX SCH ×2 (07:25→19:42)
[2021-08-29] MEDS ORDERED: POTASSIUM CHLORIDE 20 MEQ TABLET PO ONE ×3 (07:37→16:00)
[2021-08-29] MEDS: LACTULOSE 20 GM/30 ML UDCUP PO SCH ×2 (09:00→21:06)
[2021-08-29] MEDS ORDERED: ERGOCALCIFEROL 50,000 UNIT CAPSULE PO SCH (09:00)
[2021-08-29] MEDS: gemfibroziL 600 MG TABLET PO SCH ×2 (09:01→21:06)
[2021-08-29] MEDS: predniSONE 10 MG TABLET PO SCH (09:01)
[2021-08-29] MEDS: LORATADINE 10 MG TABLET PO SCH (09:01)
[2021-08-29] MEDS: ASPIRIN EC 81 MG TABLET PO SCH (09:01)
[2021-08-29] MEDS: EZETIMIBE 10 MG TABLET PO SCH (09:01)
[2021-08-29] MEDS: carvediloL 3.125 MG TABLET PO SCH ×2 (09:02→16:22)
[2021-08-29] MEDS: FUROSEMIDE 40 MG TABLET PO SCH ×2 (09:02→15:48)
[2021-08-29] MEDS: PANTOPRAZOLE 40 MG TABLET PO SCH (09:02)
[2021-08-29] MEDS: CHOLECALCIFEROL 5,000 UNIT TABLET PO SCH (09:02)
[2021-08-29] MEDS: MAGNESIUM CHLORIDE 64 MG TABLET PO SCH (09:02)
[2021-08-29] MEDS: TAMSULOSIN 0.4 MG CAPSULE PO SCH (09:02)
[2021-08-29] MEDS: NON-FORMULARY MEDICATION (Fluticasone-Umeclidin-Vilanter [Trelegy Ellipta] 100-62.5-25 mcg INH SCH (09:03)
[2021-08-29] MEDS: MENTHOL/ZINC OXIDE OINT 71 GM JAR TOP SCH ×2 (09:03→22:40)
[2021-08-29] MEDS: INSULIN GLARGINE 100 UNIT/ML SUBCUT SCH (09:04)
[2021-08-29] MEDS: AMIODARONE 200 MG TABLET PO SCH (09:05)
[2021-08-29] MEDS: PREGABALIN 25 MG CAPSULE PO SCH ×2 (11:32→21:06)
[2021-08-29 20:40] LABS: Phospholipid Ab IgM, S < 9.4 MPL
[2021-08-29] MEDS: MONTELUKAST 10 MG TABLET PO SCH (21:07)
[2021-08-29] MEDS: rOPINIRole 1 MG TABLET PO SCH (21:07)
[2021-08-29] MEDS: SERTRALINE 50 MG TABLET PO SCH (21:07)
[2021-08-29] MEDS: ENOXAPARIN 30 MG/0.3 ML SYRINGE SUBCUT SCH (21:08)
[2021-08-29] MEDS: hydrOXYzine HCL 25 MG TABLET PO SCH (21:16)
[2021-08-30] MEDS: ALBUTEROL/IPRATROPIUM 3 ML NEB RESP TX SCH ×2 (00:25→07:10)
[2021-08-30] MEDS: ACETYLCYSTEINE 20% 800 MG/4 ML VIAL RESP TX SCH ×2 (00:25→07:10)
[2021-08-30] MEDS: AZTREONAM 1,000 MG in SODIUM CHLORIDE 0.9% 100 ML IV SCH ×2 (03:06→09:55)
[2021-08-30 05:34] LABS: Basophils % 0.2 % (0.0-0.8); Hemoglobin 9.1 GM/DL (14.0-18.0); Immature Granulocytes % 0.8 %; Immature Granulocytes Absolute 0.05 #; Lymphocytes # 0.9 10*3/uL (1.4-4.0); Lymphocytes % 13.5 % (21.2-54.2); Mean Corpuscular HGB Conc 31.4 GM/DL (32-36); Mean Corpuscular Volume 101.8 FL (87-102); Mean Platelet Volume 11.3 FL (9.6-12.0); Monocytes # 0.7 10*3/uL (0.11-0.8); Monocytes % 11.5 % (1.7-12.7); Platelet Count 330 T/CUMM (130-400); Red Blood Count 2.85 MC/CUMM (3.8-5.5); Red Cell Distribution Width 14.8 % (9.3-17.3); White Blood Count 6.4 T/CUMM (4-12)
[2021-08-30] MEDS: LEVOTHYROXINE 88 MCG TABLET PO SCH (05:39)
[2021-08-30 05:47] LABS: Albumin 2.3 G/DL (3.4-5.0); Bilirubin,Total 0.4 MG/DL (0.20-1.00); Calcium 9.7 MG/DL (8.5-10.1); Osmolality,Calculated 305.4 MOS/KG (273-304); Potassium 3.3 MMOL/L (3.5-5.1); Total Protein 7.6 G/DL (6.4-8.2)
[2021-08-30] MEDS: BUDESONIDE 0.5 MG/2 ML NEB RESP TX SCH (07:10)
[2021-08-30 08:08] VITALS: BP 128/56
[2021-08-30] MEDS: INSULIN REGULAR 100 UNIT/ML SUBCUT SCH ×2 (08:09→12:20)
[2021-08-30] MEDS: INSULIN GLARGINE 100 UNIT/ML SUBCUT SCH (08:14)
[2021-08-30] MEDS ORDERED: POTASSIUM CHLORIDE 20 MEQ TABLET PO SCH (09:00)
[2021-08-30] MEDS: LORATADINE 10 MG TABLET PO SCH (09:53)
[2021-08-30] MEDS: LACTULOSE 20 GM/30 ML UDCUP PO SCH (09:53)
[2021-08-30] MEDS: MAGNESIUM CHLORIDE 64 MG TABLET PO SCH (09:54)
[2021-08-30] MEDS: carvediloL 3.125 MG TABLET PO SCH (09:54)
[2021-08-30] MEDS: TAMSULOSIN 0.4 MG CAPSULE PO SCH (09:54)
[2021-08-30] MEDS: ASPIRIN EC 81 MG TABLET PO SCH (09:54)
[2021-08-30] MEDS: predniSONE 10 MG TABLET PO SCH (09:54)
[2021-08-30] MEDS: EZETIMIBE 10 MG TABLET PO SCH (09:54)
[2021-08-30] MEDS: PREGABALIN 25 MG CAPSULE PO SCH (09:54)
[2021-08-30] MEDS: PANTOPRAZOLE 40 MG TABLET PO SCH (09:54)
[2021-08-30] MEDS: AMIODARONE 200 MG TABLET PO SCH (09:54)
[2021-08-30] MEDS: gemfibroziL 600 MG TABLET PO SCH (09:54)
[2021-08-30] MEDS: MENTHOL/ZINC OXIDE OINT 71 GM JAR TOP SCH (09:55)
[2021-08-30] MEDS: FUROSEMIDE 40 MG TABLET PO SCH (09:55)
[2021-08-30] MEDS: NON-FORMULARY MEDICATION (Fluticasone-Umeclidin-Vilanter [Trelegy Ellipta] 100-62.5-25 mcg INH SCH (09:55)
[2021-08-30] MEDS: CHOLECALCIFEROL 5,000 UNIT TABLET PO SCH (09:55)
[2021-08-30] MEDS ORDERED: INSULIN GLARGINE 100 UNIT/ML SUBCUT SCH (21:00)
== END 2021-08-30 13:12 | DRG 682 ==
LOC: SUATTDRO → N.ED 12:44 → SUATTDRO 16:40 → N.EDINP 16:40 → N.5E 19:48
PROVIDERS: ADMIT Internal Medicine; ATTEND Family Medicine